=== PATIENT | female | born 1970 | race African-American/Black ===

== ENCOUNTER 2020-04-26 22:41 | Emergency (ER) | payer BC ==
[~2020-04-26] VITALS: Ht 162.6 cm; Wt 70.3 kg
[~2020-04-26 22:41] MED LIST: NAPROSYN500 MG PO; NORCO 5-325 TA1 EACH PO
[2020-04-26] MEDS ORDERED: PROTONIX40 M2 PO (22:52)
[2020-04-26] MEDS ORDERED: HYDROCHLOROTHIA25 M2 PO (22:52)
[2020-04-26] MEDS ORDERED: NORVASC 2.5 MG2.5 M1 PO (22:52)
[2020-04-26] MEDS ORDERED: ADIPEX-P37.5 MG PO (22:53)
[2020-04-26] MEDS ORDERED: VITAMIN D21250 MC1 PO (22:54)
[2020-04-26 23:39] LABS: ABSOLUTE NEUTROPHILS 5.2 thou/uL (1.4-8.2); BASOPHILS 0.7 % (0.0-2.0); HEMATOCRIT 33.5 % (37.0-47.0); LYMPHOCYTES 19.5 % (24.0-44.0); MCH 26.8 pg (26.0-34.0); MCV 81.2 fL (80.0-100.0); MONOCYTES 10.4 % (1.0-8.0); PLATELET COUNT 369 thou/uL (150-400); POLYS 68.4 % (36.0-66.0); RBC 4.13 mil/uL (4.20-5.00); RDW 17.2 % (10.5-14.5); WBC 7.7 thou/uL (4.0-11.0)
[2020-04-27 00:29] LABS: ANION GAP 8 mmol/L (7-16); BUN 11 mg/dL (7-18); CHLORIDE 100 mmol/L (98-107); CO2 30 mmol/L (21-32); CREATININE 0.9 mg/dL (0.6-1.0); GLUCOSE 103 mg/dL (74-106); POTASSIUM 3.2 mmol/L (3.5-5.1); SODIUM 138 mmol/L (136-145)
[2020-04-27 00:39] LABS: ALBUMIN 2.9 g/dL (3.4-5.0); SGOT 23 U/L (15-37); SGPT 18 U/L (14-59); TOTAL BILIRUBIN 0.6 mg/dL (0.2-1.0); TOTAL PROTEIN 7.3 g/dL (6.4-8.2); TROPONIN-I <0.06 ng/mL (<0.06)
[2020-04-27 00:54] VITALS: BP 122/85
--- NOTE | 2020-04-27 07:45 | EKG ---
[address] [place] [employer] [place] [address] ELECTROCARDIOGRAM REPORT Name: KENIA GRAVES Room #: DEP GRANT Tolbert#: [id number] Admission: 04/26/20 Attend Phys: Discharge: 04/27/20 Date of : 66 Report #: [id number] 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 : 1970 Requested By: Marcos Ramos Order Number: [id number] MD: Sy Sotomayor Measurements Intervals Fay Rate: 97 P: 61 FL: 128 QRS: 39 QRSD: 91 T: 37 QT: 350 QTc: 445 Interpretive Statements Sinus rhythm Probable left atrial enlargement Probable left ventricular hypertrophy No previous ECG available for comparison Electronically Signed On 04-27-2020 7:45:39 [employer] by Sy Sotomayor [email or web address] <ELECTRONICALLY SIGNED> By: Sy Sotomayor MD, [facility] 04/27/20 0745 [id number] 0031 Sy Sotomayor MD, FACC /EPI
== END 2020-04-27 00:56 | disposition home or self-care (01) ==
LOC: ER 22:41
PROVIDERS: Emergency Medicine
DX: R06.00 Dyspnea, unspecified (principal); Z79.899 Other long term (current) drug therapy; Z20.828 Contact with and (suspected) exposure to other viral communicable diseases